=== PATIENT | male | born 1990 | race Caucasian/White ===

== ENCOUNTER 2022-09-14 09:36 | Outpatient (REF) | payer OTHER, SELFPAY ==
--- NOTE | ~2022-09-14 | US_ITS ---
EXAMINATION: US ABDOMEN COMPLETE CLINICAL INFORMATION: Abdominal discomfort. COMPARISON: None available. TECHNIQUE: Real-time imaging of the abdominal viscera. FINDINGS: PANCREAS: The pancreas appears unremarkable, without masses or ductal dilatation, with the exception of the tail which is obscured by bowel gas. ABDOMINAL AORTA: The proximal, mid, and distal segments are normal in caliber. INFERIOR VENA CAVA: Visualized portions are normal. LIVER: The liver is enlarged measuring at least 17.5 cm in greatest length. The liver contour is normal. There is diffuse increased liver parenchymal echogenicity, consistent with hepatic steatosis. No focal hepatic lesion. There is no intrahepatic biliary duct dilatation seen. GALLBLADDER: Normal. The gallbladder is physiologically distended without evidence of stones, sludge, polyps, wall thickening or pericholecystic fluid. COMMON BILE DUCT: Normal in caliber measuring 0.5 cm in diameter. RIGHT KIDNEY: Normal. No hydronephrosis. No renal calculi or focal parenchymal lesions. The kidney measures 11.2 cm in maximum dimension. LEFT KIDNEY: Normal. No hydronephrosis. No renal calculi or focal parenchymal lesions. The kidney measures 11.3 cm in maximum dimension. SPLEEN: Normal. The spleen measures 11.6 cm in maximum dimension. FREE FLUID: None. US/US abdomen complete IMPRESSION: Enlarged fatty liver.
== END 2022-09-14 09:37 | disposition home or self-care (01) ==
LOC: HO.US 09:36
PROVIDERS: Visit Provider Internal Medicine
DX: R10.84 Generalized abdominal pain (principal)
CPT/HCPCS: 76700

== ENCOUNTER 2022-11-17 10:17 | Day surgery (SDC) | payer OTHER, SELFPAY ==
--- NOTE | 2022-11-16 09:49 | HO.ANESPROP2 ---
Documented by User: Ashlie Henry NP 11/16/22 09:52 HPI - Anesthesia Eval Consult details Narrative: 32yo M for Upper Endoscopy and Colonoscopy [facility] Past Medical History Medical History GERD (gastroesophageal reflux disease) IBS (irritable bowel syndrome) PTSD (post-traumatic stress disorder) Renal stones Surgical History Surgical History H/O wrist surgery History of appendectomy History of hip surgery Social History Social History Patient Tobacco Use Status: Former Tobacco user Meds Allergies Allergy/AdvReac Type Severity Reaction Status Date / Time No Known Allergies Allergy Unverified 01/10/20 17:58 Home Medications Medication Instructions Recorded Confirmed Last Taken Type omeprazole 20 mg capsule,delayed 20 mg PO DAILY 11/16/22 11/16/22 Unknown History release Exam Exam Date and Time: November 16, [id number] Assessment and Plan Assessment Anesthesia Assessment: Chart Reviewed Documented by User: Rocio Grant MD 11/17/22 10:56 [facility] Past Medical History Medical History GERD (gastroesophageal reflux disease) IBS (irritable bowel syndrome) PTSD (post-traumatic stress disorder) Renal stones Surgical History Surgical History H/O wrist surgery History of appendectomy History of hip surgery History of Problems with Anesthesia: No Social History Social History Patient Tobacco Use Status: Former Tobacco user Meds Allergies Allergy/AdvReac Type Severity Reaction Status Date / Time No Known Allergies Allergy Unverified 01/10/20 17:58 Home Medications Medication Instructions Recorded Confirmed Last Taken Type omeprazole 20 mg capsule,delayed 20 mg PO DAILY 11/16/22 11/16/22 Unknown History release Exam Airway Mallampati Class: III (full higgins) TM Dist: >3cm Neck ROM: Full Loose/Missing/Broken Teeth: No Heart: RRR Lungs: CTA Assessment and Plan Assessment Anesthesia Assessment: Anesthesia Plan Discussed Final Anesthetic Review History of Problems with Anesthesia: No NPO: Yes ASA Class: II Final Preanesthetic Review: Meds/Allgs Chart Reviewed, Consent Obtained/Reviewed and Anes Risks/Benef Reviewed Patient Risk: Low Procedure Risk: Intermediate Anesthetic Plan Anesthetic Plan: MAC: Disposition: Standard PACU
[2022-11-17 10:42] VITALS: BP 140/86; PULSE 64; RESP 18; TEMP 36.4; O2SAT 98; BMI 34.2
[2022-11-17] MEDS: Lactated Ringers 1,000 ML 100 ML IVCONT (11:07)
[2022-11-17 12:54] VITALS: BP 130/80; PULSE 69; RESP 16; TEMP 36.2; O2SAT 97
--- NOTE | 2022-11-17 12:58 | P.BOP_ITS ---
Brief Operative Note Date of Service: 11/17/22 Pre-op diagnosis: GERD, Diarrhea Post-op diagnosis: other (Same, Hiatal hernia, Internal hemorrhoids) Procedure: EGD with biopsies, Colonoscopy to the cecum and TI with biopsies Surgeon: Nas Sousa Anesthesia: MAC Was an Ceo [employer] used for this Procedure?: No Estimated blood loss (mL): 2.0 Pathology: other (A. Descending duodenum B. Gastric antrum C. EG Junction at 35cm D. Ascending colon E. Descending colon) Condition: stable Disposition: PACU
[2022-11-17 13:10] VITALS: BP 137/77; PULSE 50; RESP 16; TEMP 36.2; O2SAT 96
[2022-11-17 13:24] VITALS: BP 142/91; PULSE 54; RESP 18; TEMP 36.1; O2SAT 98
--- NOTE | 2022-11-17 14:02 | OP_ITS ---
DATE OF SERVICE: 11/17/2022 SURGEON: Nas Sousa MD INDICATIONS: The patient presents for evaluation of gastroesophageal reflux, abdominal discomfort, and diarrhea. Full consent has been obtained from him for this, including risks of bleeding and perforation. PREOPERATIVE DIAGNOSIS: POSTOPERATIVE DIAGNOSIS: PROCEDURE PERFORMED: Esophagogastroduodenoscopy with biopsies, colonoscopy to the cecum and terminal ileum with biopsies. ESTIMATED BLOOD LOSS: COMPLICATIONS: ANESTHESIA: Monitored anesthesia care. ASSISTANTS: SPECIMENS: PREOPERATIVE DIAGNOSES: Gastroesophageal reflux, abdominal discomfort, diarrhea. POSTOPERATIVE DIAGNOSES: Gastroesophageal reflux, abdominal discomfort, diarrhea, small hiatal hernia, rule out celiac disease, rule out microscopic colitis, small internal hemorrhoids. DESCRIPTION OF PROCEDURE: The patient was placed in the left lateral decubitus position. The Olympus video gastroscope was passed in the posterior oropharynx and upper esophagus under direct vision. The scope was passed slowly into the distal esophagus. The gastroesophageal junction appeared at 35 cm. There was some very minimal irregularity but no evidence of esophagitis nor Jaquez mucosa. The scope entered the stomach. There was a small hiatal hernia. The scope was advanced to the pylorus, and the duodenum was cannulated to the descending portion the duodenum including the bulb was carefully inspected and appeared normal. Biopsies were obtained in the second and third portions of the duodenum. The scope was withdrawn back in the stomach. The gastric antrum and body appeared normal with good peristalsis. Biopsies were obtained from the gastric antrum. The scope was retroflexed visualizing the proximal stomach carefully, which appeared normal, without any sign of mass or ulceration. The scope was straightened and withdrawn back into the esophagus. Biopsies were obtained at the EG junction at 35 cm. Proximal to this, the esophageal mucosa appeared normal. The scope was withdrawn from the patient. He was turned around for the colonoscopy. The digital rectal exam revealed no abnormalities. The Olympus video pediatric colonoscope was entered into the rectum and advanced easily to the cecum. Once in the cecum, I did identify normal-appearing cecal pouch with appendiceal orifice and a normal-appearing ileocecal valve. The terminal ileum was cannulated and appeared normal. The biopsies were obtained from the terminal ileum. The scope was withdrawn back in the colon. The entire cecum and ileocecal valve appeared normal. The scope was slowly withdrawn assessing all mucosal surfaces carefully. Preparation was excellent. I did not visualize any sign of polyps, colitis, nor angiodysplasia. Biopsies were obtained in the ascending and descending colon. In the rectum, scope was retroflexed visualizing internal hemorrhoids, but no other pathology. The rectal mucosa appeared normal. The scope was straightened and withdrawn from the patient. He tolerated both procedures well and was returned to the recovery area in stable condition. IMPRESSION: 1. Small hiatal hernia, gastroesophageal reflux. 2. Rule out celiac disease. 3. Rule out microscopic colitis. 4. Internal hemorrhoids. PLAN: The results of the biopsies will be checked. He was advised that he could continue to use his omeprazole to treat the symptomatic reflux and to use Imodium as needed for the intermittent diarrhea. He was advised to see me later this year for a followup visit as well. I would recommend a repeat colonoscopy at age 45 for further screening. He was advised not to use any aspirin and NSAIDs for least 1 week. This has been discussed with his mother. MD JACQUELINE Lopez/EMERALD / [id number]
== END 2022-11-17 14:07 | disposition home or self-care (01) ==
PROVIDERS: Visit Provider Internal Medicine
PROC: (CPT 45380; principal; 2022-11-17 11:30)
DX: K44.9 Diaphragmatic hernia without obstruction or gangrene (principal); K64.8 Other hemorrhoids; K21.9 Gastro-esophageal reflux disease without esophagitis; K58.9 Irritable bowel syndrome, unspecified; Z87.891 Personal history of nicotine dependence; Z79.899 Other long term (current) drug therapy
CPT/HCPCS: 45380; 43239; 88305; 88342; J2250

== ENCOUNTER 2022-12-14 10:20 | Outpatient (REF) | payer OTHER, SELFPAY ==
[2022-12-14 13:18] LABS: MANUAL DIFF FLAG NO
[2022-12-14 13:21] LABS: Basophils Absolute Auto 0.1 X10*3/uL (0.0-0.2); Basophils Percent Auto 0.8 % (0-2); Eosinophils Absolute Auto 0.1 X10*3/uL (0.0-0.4); Eosinophils Percent Auto 1.3 % (0-4); Hematocrit 46.3 % (42.0-52.0); Hemoglobin 15.8 g/dl (14.0-18.0); Imm Gran Abs Auto 0.18 X10*3/uL (0.00-0.03); Imm Gran Pct Auto 2.5 % (0.0-0.4); Lymphocytes Absolute Auto 4.1 X10*3/uL (1.2-4.9); Lymphocytes Percent Auto 58.3 % (20-40); Mean Corpuscular HGB Conc 34.1 g/dl (31.0-36.0); Mean Corpuscular Hemoglobin 31.3 pg (27.0-33.0); Mean Corpuscular Volume 91.9 fL (80.0-98.0); Mean Platelet Volume 10.3 fL (9.4-12.4); Monocytes Absolute Auto 0.6 X10*3/uL (0.1-1.2); Monocytes Percent Auto 8.9 % (2-11); Neutrophils Percent Auto 28.2 % (45-73); Platelet Count 295 X10*3/uL (160-400); Red Blood Count 5.04 X10*6/uL (4.60-5.80); Red Cell Distribution Width 12.9 % (11.0-16.0); White Blood Count 7.1 X10*3/uL (4.8-10.8)
[2022-12-14 13:39] LABS: Alanine Aminotransferase 43 U/L (0-40); Albumin Level 4.5 g/dL (3.5-5.0); Alkaline Phosphatase 112 U/L (39-117); Aspartate Amino Transferase 31 U/L (5-37); Bilirubin Direct 0.2 mg/dL (0.0-0.5); Bilirubin Total 0.3 mg/dL (0.0-1.0); C Reactive Protein 0.19 mg/dL (< or = 0.50); Lipase 44 U/L (8-78); Total Protein 8.3 g/dL (6.5-8.0)
[2022-12-14 13:56] LABS: TSH reflex Free T4 1.55 uIU/mL (0.32-4.0)
[2022-12-14 14:12] LABS: Erythrocyte Sedimentation Rate 7 MM/HR (0-15)
[2022-12-15 16:24] LABS: Immunoglobulin A 468 mg/dL (47-310)
[2022-12-15 23:19] LABS: Gliadin Deamidated IgA Ab <1.0 U/mL; Gliadin Deamidated IgG Ab 35.8 U/mL
[2022-12-16 13:58] LABS: Transglutaminase Ab IgG <1.0 U/mL; Transglutaminase IgA <1.0 U/mL
[2022-12-18 12:53] LABS: Endomysial IgA Antibody Negative (Negative)
== END 2022-12-14 10:21 | disposition home or self-care (01) ==
LOC: HO.10HDL 10:20
PROVIDERS: Visit Provider Internal Medicine
DX: R19.7 Diarrhea, unspecified (principal); R14.0 Abdominal distension (gaseous)
CPT/HCPCS: 36415; 80076; 82784; 83690; 84443; 85025; 85652; 86140; 86231; 86258; 86364